=== PATIENT | male | born 1995 | race American Indian/Alaskan Native ===

== ENCOUNTER 2017-11-09 23:56 | Emergency (ER) | payer SELFPAY ==
[2017-11-10 02:21] LABS: Bilirubin,Urine NEG (Negative); Blood,Urine NEG (Negative); Color,Urine Yellow (Yellow); Mucus,Urine FEW /HPF; Nitrite,Urine NEG (Negative); Protein,Urine <15 mg/dL mg/dL (Negative)
[2017-11-10 02:29] LABS: Benzodiazepines Screen,Urine PRESUMPTIVE NEGATIVE; Cocaine Screen,Urine PRESUMPTIVE NEGATIVE; Methadone Screen,Urine PRESUMPTIVE NEGATIVE; Opiate Screen,Urine PRESUMPTIVE NEGATIVE
[2017-11-10 02:34] LABS: WBC,Urine < 1.0 /HPF (0.0-6.0)
[2017-11-10 02:48] LABS: Amphetamine Screen,Urine PRESUMPTIVE POSITIVE; Cannabinoid Screen,Urine PRESUMPTIVE POSITIVE
--- NOTE | 2017-11-10 02:57 | Emergency Department Report ---
HPI - General Chief Complaint: Psych Time Seen by Provider: 11/10/17 02:19 - HPI HPI: 22-year-old male presents to the emergency department requesting inpatient mental health treatment, specifically at [facility]. He has a history of bipolar disorder, schizophrenia and "other disorders and conditions." Patient says that he recently lost his job as he is unable to keep a job secondary to his conditions. He also says that he is trying to get into a mental health facility to help him get a "disability check." The patient does not want to give blood for a medical clearance as he says he does not "believe in it." The patient has some pressured speech and disorganized thoughts so he can't follow at times. He denies any suicidal or homicidal ideations. He says there are times where he will have auditory and/or visual hallucinations but I am not sure whether or not he is dealing with any of those currently. He says that he has been to an inpatient facility before both here in [place] and in [place]. ED Past Medical Hx - Past Medical History Hx Psychiatric Treatment: Yes - Social History Smoking Status: Current Every Day Smoker Substance Use Type: Marijuana - Medications Home Medications: Home Medications Medication Instructions Recorded Confirmed Last Taken Type No Known Home Medications [No 11/10/17 11/10/17 Unknown History Reported Home Medications] ED Review of Systems ROS: Stated complaint: MH Other details as noted in HPI Comment: All other systems reviewed and negative Constitutional: denies: chills, fever Eyes: denies: eye pain, eye discharge, vision change ENT: denies: ear pain, throat pain Respiratory: denies: cough, shortness of breath, wheezing Cardiovascular: denies: chest pain, palpitations Gastrointestinal: denies: abdominal pain, nausea, diarrhea Genitourinary: denies: urgency, dysuria Musculoskeletal: denies: back pain, joint swelling, arthralgia Skin: denies: rash, lesions Neurological: denies: headache, weakness, paresthesias Psychiatric: denies: homicidal thoughts, suicidal thoughts Physical Exam - Physical Exam Vital Signs: Vital Signs 11/10/17 11/10/17 01:34 02:07 Temperature 98 F Pulse Rate 78 Respiratory 16 16 Rate Blood Pressure 134/74 O2 Sat by Pulse 100 Oximetry Physical Exam: GENERAL: The patient is well-developed well-nourished. HENT: Normocephalic. Atraumatic. Patient has moist mucous membranes. EYES: Extraocular motions are intact. Pupils equal reactive to light bilaterally. NECK: Supple. Trachea is midline. CHEST/LUNGS: Clear to auscultation. There is no respiratory distress noted. HEART/CARDIOVASCULAR: Regular. There is no tachycardia. There is no murmur. ABDOMEN: Abdomen is soft, nontender. Patient has normal bowel sounds. There is no abdominal distention. SKIN: Skin is warm and dry. NEURO: The patient is awake, alert, and oriented. The patient is cooperative. The patient has no focal neurologic deficits. MUSCULOSKELETAL: There is no tenderness or deformity. There is no limitation range of motion. There is no evidence of acute injury. PSYCH: Patient has some pressured speech and disorganized thoughts. He has some occasional inappropriate laughter. ED Course Vital Signs 11/10/17 11/10/17 01:34 02:07 Temperature 98 F Pulse Rate 78 Respiratory 16 16 Rate Blood Pressure 134/74 O2 Sat by Pulse 100 Oximetry ED Medical Decision Making - Lab Data Result diagrams: 11/10/17 03:11 11/10/17 03:11 - Medical Decision Making Patient has a history of bipolar disorder and schizophrenia. While he denies any current hallucinations or any suicidal or homicidal ideations, the patient does appear to have some acute psychosis. He has inappropriate laughter, pressured speech and disorganized thoughts. He was seen by Jose Antonio, the psych export administrator, who agrees that the patient shows some bipolar and/or schizophrenic symptoms, appears to have acute psychosis, and should be made a 1013. His labs have been unremarkable except for a urine drug screen positive for amphetamines and marijuana. It could be possible that his symptoms are drug-related but he does have known psychiatric history. Nonetheless the patient has been made a 1013 and is medically cleared for psychiatric placement. - Differential Diagnosis bipolar disorder, schizophrenia, schizoaffective, substance abuse Critical Care Time: No Critical care attestation.: If time is entered above; I have spent that time in minutes in the direct care of this critically ill patient, excluding procedure time. ED Disposition Clinical Impression: History of schizophrenia, Acute psychosis Bipolar disorder Qualifiers: Active/Remission status: remission status unspecified Qualified Code(s): F31.9 - Bipolar disorder, unspecified Disposition: DC/TX-65 PSY HOSP/PSY UNIT Is pt being admited?: No Condition: Stable Time of Disposition: 04:22
[2017-11-10 03:33] LABS: Basophils # (Auto) 0.1 K/mm3 (0.0-0.1); Basophils % (Auto) 1.2 % (0.0-1.8); Eosinophils # (Auto) 0.4 K/mm3 (0.0-0.4); Eosinophils % (Auto) 4.9 % (0.0-4.3); Hemoglobin 14.9 gm/dl (11.8-15.2); Lymphocytes # (Auto) 2.9 K/mm3 (1.2-5.4); Lymphocytes % (Auto) 38.5 % (13.4-35.0); Mean Corpuscular HGB Conc 34 % (32-34); Mean Corpuscular Hemoglobin 29 pg (28-32); Mean Corpuscular Volume 86 fl (84-94); Monocytes # (Auto) 0.7 K/mm3 (0.0-0.8); Monocytes % (Auto) 8.8 % (0.0-7.3); Platelet Count 247 K/mm3 (140-440); Red Blood Count 5.12 M/mm3 (3.65-5.03); Red Cell Distribution Width 13.4 % (13.2-15.2)
[2017-11-10 03:52] LABS: BUN/Creatinine Ratio 10; Blood Urea Nitrogen 10 mg/dL (9-20); Calcium 9.7 mg/dL (8.4-10.2); Hemolysis Index 5
--- NOTE | 2017-11-10 18:15 | Consultation ---
History of Present Illness - Reason for Consult Consult date: 11/10/17 Reason for consult: psychiatric evaluation - Chief Complaint Chief complaint: "Mom said I need to go to an inpatient hospital to refurbish." - History of Present Psychiatric Illness Colt Li is a 22 year old AA male who presents with psychosis. His mother reports he has bipolar and has been manic. He states he has not been sleeping. He is paranoid and laughing inappropriately. He has a history of these symptoms for 1.5 years per his mother. He perseverated about needing to get his SSI started. His thought process is disorganized and at one point became hostile during the interview without warning signs. His mother is available anytime at [phone]. She reports he will get several jobs and when someone else is hired after him, he becomes paranoid and is terminated. She reports he has a history of bipolar disorder. He was previously on risperdal, paxil, and depakote. Unable to assess suicidal or homicidal ideation or if he is experiencing hallucinations. His response is "I don't want to talk about it" and "My records are in [place]." Medications and Allergies Allergies Allergy/AdvReac Type Severity Reaction Status Date / Time banana Allergy Hives Verified 05/23/16 16:59 Home Medications Medication Instructions Recorded Confirmed Last Taken Type No Known Home Medications [No 11/10/17 11/10/17 Unknown History Reported Home Medications] Past psychiatric history - Past Medical History Past Medical History: No medical history - past Psychiatric treatment and history Psych: Bipolar, Psychosis - Social History Social history: other (urine drug screen is positive for amphetamine and THC. He is transient and will stay with his mother at times.) Mental Status Exam - Vital signs Last Vital Signs Temp 98.8 F 11/10/17 03:12 Pulse 75 11/10/17 03:12 Resp 18 11/10/17 03:12 BP 117/68 11/10/17 03:12 Pulse Ox 97 11/10/17 03:12 - Exam Orientation: time, place, person Affect: agitated Mood: congruent with affect Thought content: delusions, paranoia Thought Process: Disorganized Perceptions: other (unable to assess. laughing inappropriately, said someone was touching the door ) Speech: pressured Concentration: unable to pay attention Motor activity: agitated Level of consciousness: alert Memory: Intact Sleep Symptoms: Restless Interaction: hostile Results Result Diagrams: 11/10/17 03:11 11/10/17 03:11 Abnormal lab results 11/10/17 11/10/17 11/10/17 Range/Units 03:11 03:11 03:11 RBC 5.12 H (3.65-5.03) M/mm3 Lymph % (Auto) 38.5 H (13.4-35.0) % [place] % (Auto) 8.8 H (0.0-7.3) % Eos % (Auto) 4.9 H (0.0-4.3) % Glucose 124 H (75-100) mg/dL Salicylates < 0.3 L (2.8-20.0) mg/dL All other labs normal. Assessment and Plan Assessment and plan: Impression: bipolar 1 myesha with psychosis unspecified substance use disorder differential dx: schizoaffective, bipolar type, substance induced psychotic d/o Recommendation: Continue 1013 and transfer to inpatient psychiatric facility LFTs ordered since we are starting depakote TSH ordered depakote dr 500mg bid for myesha risperdal 1mg hs for psychotic symptoms
[2017-11-10 19:04] LABS: Alanine Aminotransferase 9 units/L (7-56); Albumin 4.8 g/dL (3.9-5)
[2017-11-10 19:31] LABS: Bilirubin,Direct < 0.2 mg/dL (0-0.2)
[2017-11-10] MEDS: RisperDAL PO SCH (22:30)
--- NOTE | 2017-11-11 15:23 | Progress Note ---
Subjective - Reason for Consult Consult date: 11/11/17 Reason for consult: follow up - Chief Complaint Chief complaint: "I need to go." Colt Li is a 22 year old AA male who presents with psychosis. His mother reports he has bipolar and has been manic. He states he has not been sleeping. He is paranoid and laughing inappropriately. He has a history of these symptoms for 1.5 years per his mother. He continues to focus on getting his SSI check but is clearly paranoid and hostile. His thought process is disorganized. His mother is available anytime at [phone]. Unable to assess suicidal or homicidal ideation or if he is experiencing hallucinations. He refused medication. He states he does not need medication and he should leave the hospital. Mental Status Exam - Vital signs Last Vital Signs Temp 97.8 F 11/11/17 08:16 Pulse 68 11/11/17 08:16 Resp 16 11/11/17 08:16 BP 124/78 11/11/17 08:16 Pulse Ox 100 11/11/17 08:16 - Exam Narrative exam: Orientation: time, place, person Affect: agitated Mood: congruent with affect Thought content: delusions, paranoia Thought Process: Disorganized Perceptions: other (unable to assess. laughing inappropriately) Speech: pressured Concentration: unable to pay attention Motor activity: agitated Level of consciousness: alert Memory: Intact Sleep Symptoms: Restless Interaction: hostile Assessment and Plan Impression: bipolar 1 myesha with psychosis unspecified substance use disorder differential dx: schizoaffective, bipolar type, substance induced psychotic d/o Recommendation: Continue 1013 and transfer to inpatient psychiatric facility Encouraged to take medications. depakote dr 500mg bid for myesha risperdal 1mg hs for psychotic symptoms
[2017-11-11] MEDS: RisperDAL PO SCH (22:28)
--- NOTE | 2017-11-12 11:38 | Progress Note ---
Subjective - Reason for Consult Consult date: 11/12/17 Reason for consult: Psychiatry Follow-up - Chief Complaint Chief complaint: "What's next for me" 22 year old AA male who presents with psychosis. His mother reports he has bipolar and has been manic. Today the patient is calm during the assessment. He is hyper verbal and disorganized during the interview. He had to be redirected several times to keep him on topic. Per the MAR, the patient is refusing his medications. He stated that he don't take medications "at all." Mental Status Exam - Vital signs Last Vital Signs Temp 98 F 11/12/17 04:10 Pulse 74 11/12/17 04:10 Resp 20 11/11/17 22:31 BP 127/76 11/12/17 04:10 Pulse Ox 100 11/11/17 19:50 - Exam Narrative exam: MSE: Appearance: calm Behavior: regular eye contact Speech: hyper verbal Mood: "okay" Affect: flat Thought Process: tangential Thought Content: denies SI/HI's and AVH's, disorganized Motor Activity: ambulatory Cognition: A/O x 3 Insight: poor Judgment: poor Assessment and Plan Impression: Bipolar DO with psychosis. Substance Use Do (amphetamines/marijuana) . Today the patient is calm during the assessment. DDx: R/O Schizoaffective DO, R/O Schizophrenia, R/O Substance Induced Psychosis Recommendation/Plan: Continue 1013 and transfer to inpatient psychiatric facility. Continue Risperdal 1 mg PO HS for psychosis and Depakote 500 mg PO BID for mood. Discussed possible metabolic side effects of Risperdal with patient. Encourage patient to take his medications.
[2017-11-12] MEDS: RisperDAL PO SCH (22:10)
--- NOTE | 2017-11-13 15:17 | Progress Note ---
Subjective - Reason for Consult Consult date: 11/13/17 Reason for consult: Psychiatry Follow-up - Chief Complaint Chief complaint: "I can't the medication" 22 year old AA male who presents with psychosis. His mother reports he has bipolar and has been manic. Today the patient is calm, but disorganized and tangent during the assessment. He stated that he would like to take another medication. He stated, " I don't like Depakote and Risperdal." The patient has not been medication compliant since his admission. He denies SI/HI's and AVH's. Mental Status Exam - Vital signs Last Vital Signs Temp 98.4 F 11/12/17 17:54 Pulse 61 11/12/17 17:54 Resp 16 11/13/17 08:40 BP 125/84 11/12/17 17:54 Pulse Ox 100 11/13/17 08:40 - Exam Narrative exam: MSE: Appearance: calm Behavior: regular eye contact Speech: hyper verbal Mood: "okay" Affect: flat Thought Process: tangential Thought Content: denies SI/HI's and AVH's, disorganized Motor Activity: ambulatory Cognition: A/O x 3 Insight: poor Judgment: poor Assessment and Plan Impression: Bipolar DO with psychosis. Substance Use Do (amphetamines/marijuana) . Today the patient is calm during the assessment. DDx: R/O Schizoaffective DO, R/O Schizophrenia, R/O Substance Induced Psychosis Recommendation/Plan: Continue 1013 with placement to [facility] pending transport time. Start Zyprexa 5 mg PO HS for mood/psychosis. Discussed possible metabolic side effects of Zyprexa with patient. Encourage patient to take his medication.
[2017-11-14 13:29] VITALS: BP 108/72
== END 2017-11-14 13:31 ==
LOC: ED 23:56 → EEVIPCON 23:56 → ED 11-14 13:31
DX: F20.9 Schizophrenia, unspecified (principal); F17.200 Nicotine dependence, unspecified, uncomplicated; F12.10 Cannabis abuse, uncomplicated; Z91.018 Allergy to other foods; F31.2 Bipolar disorder, current episode manic severe with psychotic features; F15.10 Other stimulant abuse, uncomplicated
CPT/HCPCS: 36415; 80048; 80074; 80307; 81001; 84443; 85025; 99285; G0480; 80320